=== PATIENT | female | born 1955 | race Caucasian/White ===

== ENCOUNTER 2017-07-10 03:12 | Inpatient (IN) ==
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
== END 2017-08-21 12:41 ==
LOC: N06 04:14
PROVIDERS: ADMIT Family Medicine; ATTEND Family Medicine

== ENCOUNTER 2017-11-11 11:34 | Inpatient (IN) ==
[2017-11-11] MEDS ORDERED: Sod Chloride 0.9% Inj 1,000 ML IV.SIG ONE (12:03)
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
[2017-11-11 12:30] LABS: Baso % (Auto) 0.4 % (0.0-2.0); Eos # (Auto) 0.2 th/mm3 (0.0-0.4); Eos % (Auto) 1.9 % (0.0-4.0); Hematocrit 34.9 % (35.0-46.0); Hemoglobin 11.5 gm/dL (11.6-15.3); Lymph # (Auto) 2.1 th/mm3 (1.0-4.8); Lymph % (Auto) 18.4 % (9.0-44.0); Mean Corpuscular Hemoglobin 30.5 pg (27.0-34.0); Mean Corpuscular Volume 92.2 fL (80.0-100.0); Mean Platelet Volume 8.7 fL (7.0-11.0); Mono # (Auto) 0.9 th/mm3 (0.0-0.9); Mono % (Auto) 8.1 % (0.0-8.0); Neut % (Auto) 71.2 % (16.0-70.0); Platelet Count 292 th/mm3 (150-450); Red Blood Count 3.78 mil/mm3 (4.00-5.30); Red Cell Distribution Width 15.8 % (11.6-17.2); White Blood Count 11.3 th/mm3 (4.0-11.0)
[2017-11-11 13:07] LABS: Albumin 3.8 g/dL (3.4-5.0); Anion Gap 17 meq/L (5-15); Aspartate Aminotransferase 13 U/L (15-37); Blood Urea Nitrogen 49 mg/dL (7-18); Calcium 9.1 mg/dL (8.5-10.1); Carbon Dioxide 13.2 meq/L (21.0-32.0); Chloride 106 meq/L (98-107); Glomerular Filtration Rate 10 mL/min (>89); Glucose,Random 128 mg/dL (74-106); Potassium 3.8 meq/L (3.5-5.1); Sodium 136 meq/L (136-145)
[2017-11-11 13:12] LABS: Alanine Aminotransferase 16 U/L (10-53); Alkaline Phosphatase 99 U/L (45-117); Total Protein 8.2 g/dL (6.4-8.2)
[2017-11-11] MEDS ORDERED: Sod Chloride 0.9% Inj 1,000 ML IV.SIG SCH ×2 (13:30→21:30)
[2017-11-11] MEDS ORDERED: Bisacodyl 10 MG Supp RECTAL PRN (14:44)
[2017-11-11] MEDS ORDERED: Acetaminophen 325 MG Tablet PO PRN (14:44)
[2017-11-11] MEDS: Sod Chloride 0.9% Inj 1,000 ML IV.CONT SCH (15:30)
[2017-11-11 20:44] LABS: Creatine Kinase 37 U/L (26-192)
[2017-11-11 22:03] LABS: Bacteria,Urine Occasional /hpf; Bilirubin,Urine Negative (Negative); Clarity,Urine Turbid (Clear); Color,Urine Amber (Yellw/Straw); Glucose,Urine (UA) Negative (Negative); Hyaline Casts,Urine 59 /lpf (0-3); Leukocyte Esterase,Urine Large (Negative); Mucus,Urine Few /lpf (Occasional); Nitrite,Urine Negative (Negative); Specific Gravity,Urine 1.017 (1.002-1.035); Squamous Epithelial Cell,Urine 3 /hpf (0-5)
[2017-11-11 22:04] LABS: Creatinine,Urine Random 185 mg/dL (27-300)
[2017-11-12] MEDS: Famotidine 20 MG Tablet PO SCH ×3 (02:14→21:52)
[2017-11-12] MEDS: Heparin - SQ 10,000 UNITS/ML Vial SQ SCH ×3 (02:14→21:51)
[2017-11-12] MEDS ORDERED: Sodium Chlor 0.9% Inj 500 ML IV.SIG SCH (06:00)
[2017-11-12 07:15] LABS: Baso % (Auto) 0.4 % (0.0-2.0); Eos # (Auto) 0.5 th/mm3 (0.0-0.4); Eos % (Auto) 5.8 % (0.0-4.0); Hematocrit 28.6 % (35.0-46.0); Hemoglobin 9.4 gm/dL (11.6-15.3); Lymph # (Auto) 2.2 th/mm3 (1.0-4.8); Mean Corpuscular Hemoglobin 30.3 pg (27.0-34.0); Mean Corpuscular Volume 92.1 fL (80.0-100.0); Mean Platelet Volume 8.9 fL (7.0-11.0); Mono # (Auto) 0.9 th/mm3 (0.0-0.9); Mono % (Auto) 10.4 % (0.0-8.0); Neut # (Auto) 4.9 th/mm3 (1.8-7.7); Neut % (Auto) 57.4 % (16.0-70.0); Platelet Count 245 th/mm3 (150-450); Red Blood Count 3.11 mil/mm3 (4.00-5.30); White Blood Count 8.6 th/mm3 (4.0-11.0)
[2017-11-12 07:30] LABS: Calcium 8.3 mg/dL (8.5-10.1); Carbon Dioxide 15.1 meq/L (21.0-32.0); Potassium 3.5 meq/L (3.5-5.1)
--- NOTE | 2017-11-12 12:18 | ECHRPT ---
Indication: CARDIOMYOPATHY CONCLUSIONS Normal left ventricular size. Wall thickness is normal. The left ventricular systolic function is hyperdynamic with an estimated ejection fraction in the ra nge of 65- 70%. Trace mitral valve regurgitation. There is trace- mild tricuspid valve regurgitation. The estimated pulmonary arterial pressure is 31 mmHg. BP: / HR: Rhythm: MEASUREMENTS (Male / Female) Normal Values Technical Quality: 2D ECHO LV Diastolic Diameter PLAX 4.3 cm 4.2 - 5.9 / 3.9 - 5.3 cm LV Systolic Diameter PLAX 3.5 cm IVS Diastolic Thickness 0.7 cm 0.6 - 1.0 / 0.6 - 0.9 cm LVPW Diastolic Thickness 0.8 cm 0.6 - 1.0 / 0.6 - 0.9 cm LV Relative Wall Thickness 0.3 RV Internal Dim ED PLAX 2.0 cm M-MODE Aortic Root Diameter MM 2.9 cm AV Cusp Separation MM 1.9 cm DOPPLER Mitral E Point Velocity 64.2 cm/s Mitral A Point Velocity 64.7 cm/s Mitral E to A Ratio 1.0 TR Peak Velocity 228.0 cm/s TR Peak Gradient 20.8 mmHg Right Atrial Pressure 10.0 mmHg Pulmonary Artery Systolic Pressu 30.8 mmHg Right Ventricular Systolic Press 30.8 mmHg FINDINGS LEFT VENTRICLE Normal left ventricular size. Wall thickness is normal. The left ventricular systolic function is hyperdynamic with an estimated ejection fraction in the ra nge of 65- 70%. RIGHT VENTRICLE Normal right ventricular size and systolic function. LEFT ATRIUM The left atrial size is normal. RIGHT ATRIUM The right atrial size is normal. ATRIAL SEPTUM Normal atrial septal thickness without atrial level shunting by limited color doppler interrogation. AORTA The aortic root and proximal ascending aorta are normal in size on limited imaging. MITRAL VALVE Trace mitral valve regurgitation. AORTIC VALVE Trileaflet aortic valve. No aortic valve stenosis or regurgitation. TRICUSPID VALVE There is trace- mild tricuspid valve regurgitation. The estimated pulmonary arterial pressure is 31 mmHg. PULMONARY VALVE No pulmonary valve regurgitation or stenosis. VESSELS The inferior vena cava is normal in size. PERICARDIUM No pericardial effusion. Kayode Medina MD, FACC (Electronically Signed) Final Date:12 November 2017 12:17
[2017-11-12] MEDS: Sod Chloride 0.9% Inj 1,000 ML IV.CONT SCH (12:32)
[2017-11-13 07:05] LABS: Calcium 8.5 mg/dL (8.5-10.1); Potassium 3.7 meq/L (3.5-5.1)
[2017-11-13] MEDS: Heparin - SQ 10,000 UNITS/ML Vial SQ SCH ×2 (09:44→20:20)
[2017-11-13] MEDS: Famotidine 20 MG Tablet PO SCH ×2 (09:46→20:21)
--- NOTE | 2017-11-13 13:38 | ECG ---
Date Performed: 11/11/2017 Time Performed: 12:00:12 PTAGE: 62 years EKG: Sinus rhythm WITH MARKED SINUS ARRHYTHMIA POSSIBLE RIGHT VENTRICULAR CONDUCTION DELAY BORDERLINE ECG PREVIOUS TRACING : 07/12/2017 20.20 Compared to previous tracing, now with IRBBB, but no longe r fitting criteria for LVH DOCTOR: Jean-Pierre Barney Interpretating Date/Time 11/13/2017 13:38:07
[2017-11-13] MEDS: Sod Chloride 0.9% Inj 1,000 ML IV.CONT SCH (16:41)
[2017-11-13] MEDS ORDERED: Sodium Chloride 0.65% Nasal Drops/Spray 30 ML Bottle EACH NARE PRN (21:40)
[2017-11-14 05:53] LABS: Calcium 8.6 mg/dL (8.5-10.1); Carbon Dioxide 16.6 meq/L (21.0-32.0); Potassium 3.4 meq/L (3.5-5.1)
[2017-11-14] MEDS: Sod Chloride 0.9% Inj 1,000 ML IV.CONT SCH (06:24)
[2017-11-14] MEDS: Famotidine 20 MG Tablet PO SCH (08:29)
[2017-11-14] MEDS: Heparin - SQ 10,000 UNITS/ML Vial SQ SCH (08:30)
== END 2017-11-14 15:50 | disposition home or self-care (01) ==
LOC: NEPE 11:34 → NEDA 14:41 → N06 16:29
PROVIDERS: ADMIT Hospitalist; ATTEND Hospitalist